=== PATIENT | male | born 1975 | race Caucasian/White ===

== ENCOUNTER → 2022-01-05 06:10 | Outpatient (CLI) | payer OTHER, SELFPAY ==
[2022-01-04 21:36] LABS: Alanine Aminotransferase 34 U/L (12-78); Albumin Level 4.1 g/dl (3.5-5.0); Albumin/Globulin Ratio 1.4 (1.1-1.8); Alkaline Phosphatase 79 U/L (38-126); Anion Gap 11.1 mEq/L (5-15); Aspartate Amino Transferase 29 U/L (17-59); Bilirubin,Total 0.3 mg/dl (0.2-1.3); Blood Urea Nitrogen 22 mg/dl (9-20); Calcium 8.9 mg/dl (8.4-10.2); Carbon Dioxide 27 mmol/L (22.0-30.0); Chloride 102 mmol/L (98-107); Estimated Glomerular Filt Rate 65 ml/min (>60); GFR (African American) 78 ML/MIN (>60); Glucose 99 mg/dl (74-100); Potassium 4.1 mmoL/L (3.5-5.1); Sodium 136 mmol/L (136-145); Total Protein,Serum 7.1 g/dl (6.3-8.2)
[2022-01-04 22:05] LABS: Prostate Specific Ag Screen 0.4 ng/ml (0.0-4.0)
== END ==
PROVIDERS: PCP Family Medicine; Visit Provider Family Medicine
DX: I10 Essential (primary) hypertension (principal); N40.0 Benign prostatic hyperplasia without lower urinary tract symptoms; Z12.5 Encounter for screening for malignant neoplasm of prostate
CPT/HCPCS: 80053; G0103

== ENCOUNTER → 2022-06-28 10:10 | Outpatient (CLI) | payer OTHER, SELFPAY ==
[2022-06-28 18:23] LABS: Basophils # 0.1 K/mm3 (0-0.2); Basophils % 1.2 % (0.1-2.0); Eosinophils # 0.2 K/mm3 (0.0-0.4); Eosinophils % 1.9 % (0.1-12.0); Hematocrit 45.2 % (42.0-52.0); Hemoglobin 14.9 g/dL (14.1-18.0); Lymphocytes # 2.2 K/mm3 (0.7-4.5); Lymphocytes % 24.5 % (10-50); Mean Corpuscular Volume 93.8 fl (80-94); Mean Platelet Volume 8.5 fl (7.4-10.4); Monocytes # 0.7 K/mm3 (0.1-1.0); Monocytes % 7.2 % (1.7-9.3); Neutrophils # 5.9 K/mm3 (1.8-7.8); Neutrophils % 65.1 % (37.0-80.0); Platelet Count 466 K/mm3 (142-424); Red Blood Count 4.82 M/mm3 (4.60-6.20); White Blood Count 9.1 K/mm3 (4.8-10.8)
[2022-06-28 18:30] LABS: Alanine Aminotransferase 41 U/L (12-78); Albumin/Globulin Ratio 1.2 (1.1-1.8); Alkaline Phosphatase 80 U/L (38-126); Anion Gap 13.3 mEq/L (5-15); Aspartate Amino Transferase 30 U/L (17-59); Bilirubin,Total 0.5 mg/dl (0.2-1.3); Blood Urea Nitrogen 17 mg/dl (9-20); Calcium 8.5 mg/dl (8.4-10.2); Carbon Dioxide 26 mmol/L (22.0-30.0); Chloride 103 mmol/L (98-107); Chol/HDL Ratio 3.9 (1-3.5); Cholesterol 118 mg/dl (140-200); Estimated Glomerular Filt Rate 71 ml/min (>60); GFR (African American) 86 ML/MIN (>60); Globulin 3.3 g/dL (1.3-3.2); Glucose 85 mg/dl (74-100); HDL Cholesterol 30 mg/dl (40-60); Potassium 4.3 mmoL/L (3.5-5.1); Sodium 138 mmol/L (136-145); Total Protein,Serum 7.3 g/dl (6.3-8.2); Triglycerides 117 mg/dl (30-150); VLDL Cholesterol 23 mg/dL (0-40)
[2022-06-28 18:49] LABS: 25-OH Vitamin D, Total < 12.8 ng/mL (30-100)
[2022-06-28 19:00] LABS: Thyroid Stimulating Hormone 0.79 uIU/mL (0.465-4.68)
== END ==
PROVIDERS: PCP Family Medicine; Visit Provider Family Medicine
DX: E78.5 Hyperlipidemia, unspecified (principal); I10 Essential (primary) hypertension; E55.9 Vitamin D deficiency, unspecified
CPT/HCPCS: 80053; 80061; 82306; 84443; 85025

== ENCOUNTER → 2023-01-24 12:43 | Outpatient (CLI) | payer OTHER, SELFPAY ==
[2023-01-24 19:21] LABS: Alanine Aminotransferase 33 U/L (12-78); Albumin Level 4.3 g/dl (3.5-5.0); Albumin/Globulin Ratio 1.2 (1.1-1.8); Alkaline Phosphatase 86 U/L (38-126); Anion Gap 14.4 mEq/L (5-15); Aspartate Amino Transferase 28 U/L (17-59); Bilirubin,Total 0.6 mg/dl (0.2-1.3); Blood Urea Nitrogen 17 mg/dl (9-20); Calcium 9.2 mg/dl (8.4-10.2); Carbon Dioxide 30 mmol/L (22.0-30.0); Chloride 100 mmol/L (98-107); Chol/HDL Ratio 4.2 (1-3.5); Cholesterol 121 mg/dl (140-200); Estimated Glomerular Filt Rate 71 ml/min (>60); GFR (African American) 86 ML/MIN (>60); Globulin 3.7 g/dL (1.3-3.2); Glucose 91 mg/dl (74-100); HDL Cholesterol 29 mg/dl (40-60); Potassium 4.4 mmoL/L (3.5-5.1); Sodium 140 mmol/L (136-145); Triglycerides 144 mg/dl (30-150); VLDL Cholesterol 29 mg/dL (0-40)
[2023-01-24 19:32] LABS: Direct LDL Cholesterol 66.62 mg/dL (100-129)
== END ==
PROVIDERS: PCP Family Medicine; Visit Provider Family Medicine
DX: I10 Essential (primary) hypertension (principal); E78.5 Hyperlipidemia, unspecified
CPT/HCPCS: 80053; 80061

== ENCOUNTER 2023-06-13 10:34 | Outpatient (CLI) | payer OTHER, SELFPAY ==
[2023-06-13 19:32] LABS: Coronavirus 19, PCR Not Detected (NotDetected); Influenza A, PCR Not Detected (NotDetected); Influenza B, PCR Not Detected (NotDetected)
[2023-06-13 19:42] LABS: Basophils % 0.3 % (0.1-2.0); Eosinophils % 0.1 % (0.1-12.0); Hematocrit 44.3 % (42.0-52.0); Hemoglobin 14.6 g/dL (14.1-18.0); Lymphocytes # 1.4 K/mm3 (0.7-4.5); Lymphocytes % 9.9 % (10-50); Mean Corpuscular HGB Conc 32.9 g/dL (31.8-35.4); Mean Corpuscular Hemoglobin 30.4 pg (27.0-31.2); Mean Corpuscular Volume 92.4 fl (80-94); Mean Platelet Volume 9.3 fl (7.4-10.4); Monocytes # 1.3 K/mm3 (0.1-1.0); Monocytes % 9.3 % (1.7-9.3); Neutrophils # 11.2 K/mm3 (1.8-7.8); Neutrophils % 80.4 % (37.0-80.0); Platelet Count 337 K/mm3 (142-424); Red Cell Distribution Width 13.1 % (11.5-17.5)
== END 2023-06-13 23:59 ==
PROVIDERS: PCP Family Medicine; Visit Provider Family Medicine
DX: J40 Bronchitis, not specified as acute or chronic (principal); H61.20 Impacted cerumen, unspecified ear; I10 Essential (primary) hypertension
CPT/HCPCS: 85025; 87636

== ENCOUNTER 2023-07-04 11:25 | Outpatient (CLI) | payer OTHER, SELFPAY ==
--- NOTE | 2023-07-04 11:28 | XR_ITS ---
FINAL REPORT CLINICAL HISTORY: right sided chest wall pain, pain with cough had bronchitis for 3 weeks back pain FINDINGS: TWO-VIEW CHEST The heart size is normal. The mediastinum is normal. The lungs are underinflated. There is scar or atelectasis in the right middle lobe and left base. There is no pneumothorax. IMPRESSION: Scar or atelectasis as above. Reviewed, Interpreted and Dictated by Florentino Chaudhari MD Transcribed by Nancy Valdez Authenticated and [facility]
== END 2023-07-04 23:59 ==
LOC: RAD 11:26
PROVIDERS: PCP Family Medicine; Visit Provider Nurse Practitioner
DX: R07.89 Other chest pain (principal); R05.9 Cough, unspecified
CPT/HCPCS: 71046

== ENCOUNTER 2023-07-10 08:38 | Outpatient (CLI) | payer OTHER, SELFPAY ==
--- NOTE | 2023-07-10 08:39 | US_ITS ---
FINAL REPORT CLINICAL HISTORY: RUQ pain, GERD COMPARISON: None FINDINGS: Sonographic images of the right upper quadrant were obtained. The pancreas is partially obscured. There is fatty infiltration of the liver. The gallbladder appears normal without evidence of gallstones.There is no evidence of biliary ductal dilatation.The common duct measures 4mm. There is mild right renal atrophy. There is a 17 mm right renal cyst. IMPRESSION: Fatty liver. Mild right renal atrophy and a 17 mm right renal cyst. Reviewed, Interpreted and Dictated by Usha Lassiter MD Transcribed by Lizzy De La Paz Authenticated and [facility]
== END 2023-07-10 23:59 ==
LOC: RAD 08:39
PROVIDERS: PCP Family Medicine; Visit Provider Nurse Practitioner
DX: R10.11 Right upper quadrant pain (principal); K21.9 Gastro-esophageal reflux disease without esophagitis
CPT/HCPCS: 76705

== ENCOUNTER 2024-02-20 11:02 | Outpatient (CLI) | payer OTHER, SELFPAY ==
[2024-02-20 19:09] LABS: Alanine Aminotransferase 32 U/L (12-78); Albumin Level 3.9 g/dl (3.5-5.0); Albumin/Globulin Ratio 1.2 (1.1-1.8); Alkaline Phosphatase 69 U/L (38-126); Anion Gap 11.8 mEq/L (5-15); Aspartate Amino Transferase 30 U/L (17-59); Bilirubin,Total 0.6 mg/dl (0.2-1.3); Blood Urea Nitrogen 15 mg/dl (9-20); Calcium 9.1 mg/dl (8.4-10.2); Carbon Dioxide 29 mmol/L (22.0-30.0); Chloride 103 mmol/L (98-107); Cholesterol 128 mg/dl (140-200); Estimated Glomerular Filt Rate 54 ml/min (>60); GFR (African American) 65 ML/MIN (>60); Globulin 3.3 g/dL (1.3-3.2); Glucose 88 mg/dl (74-100); HDL Cholesterol 32 mg/dl (40-60); Potassium 4.8 mmoL/L (3.5-5.1); Sodium 139 mmol/L (136-145); Total Protein,Serum 7.2 g/dl (6.3-8.2); Triglycerides 136 mg/dl (30-150); VLDL Cholesterol 27 mg/dL (0-40)
[2024-02-20 19:35] LABS: Prostate Specific Ag Screen 0.3 ng/ml (0.0-4.0)
== END 2024-02-20 23:59 | disposition home or self-care (01) ==
LOC: LAB.DROPOF 02-21 11:14
PROVIDERS: PCP Family Medicine; Visit Provider Family Medicine
DX: E78.5 Hyperlipidemia, unspecified (principal); N40.0 Benign prostatic hyperplasia without lower urinary tract symptoms; I10 Essential (primary) hypertension
CPT/HCPCS: 80053; 80061; G0103

== ENCOUNTER 2024-06-25 11:09 | Outpatient (CLI) | payer OTHER, SELFPAY ==
[2024-06-25 19:07] LABS: Alanine Aminotransferase 29 U/L (12-78); Albumin Level 4.6 g/dl (3.5-5.0); Albumin/Globulin Ratio 1.5 (1.1-1.8); Alkaline Phosphatase 82 U/L (38-126); Anion Gap 16.8 mEq/L (5-15); Aspartate Amino Transferase 30 U/L (17-59); Bilirubin,Total 0.6 mg/dl (0.2-1.3); Blood Urea Nitrogen 28 mg/dl (9-20); Calcium 9.5 mg/dl (8.4-10.2); Carbon Dioxide 24 mmol/L (22.0-30.0); Chloride 102 mmol/L (98-107); Estimated Glomerular Filt Rate 43 ml/min (>60); GFR (African American) 52 ML/MIN (>60); Globulin 3.1 g/dL (1.3-3.2); Glucose 91 mg/dl (74-100); Potassium 4.8 mmoL/L (3.5-5.1); Sodium 138 mmol/L (136-145); Total Protein,Serum 7.7 g/dl (6.3-8.2)
[2024-06-25 19:40] LABS: 25-OH Vitamin D, Total 20.6 ng/mL (30-100)
== END 2024-06-25 23:59 | disposition home or self-care (01) ==
LOC: LAB.DROPOF 06-26 13:39
PROVIDERS: PCP Family Medicine; Visit Provider Family Medicine
DX: E55.9 Vitamin D deficiency, unspecified (principal); I10 Essential (primary) hypertension
CPT/HCPCS: 80053; 82306

== ENCOUNTER 2024-08-20 12:46 | Outpatient (CLI) | payer OTHER, SELFPAY ==
[2024-08-20 21:23] LABS: Albumin Level 4.5 g/dl (3.5-5.0); Chloride 101 mmol/L (98-107)
[2024-08-20 21:24] LABS: Potassium 4.6 mmoL/L (3.5-5.1); Sodium 136 mmol/L (136-145)
[2024-08-20 21:26] LABS: Blood Urea Nitrogen 22 mg/dl (9-20); Estimated Glomerular Filt Rate 40 ml/min (>60); GFR (African American) 49 ML/MIN (>60)
[2024-08-20 21:27] LABS: Alanine Aminotransferase 28 U/L (12-78); Albumin/Globulin Ratio 1.6 (1.1-1.8); Alkaline Phosphatase 72 U/L (38-126); Anion Gap 11.6 mEq/L (5-15); Aspartate Amino Transferase 26 U/L (17-59); Bilirubin,Total 0.4 mg/dl (0.2-1.3); Calcium 9.4 mg/dl (8.4-10.2); Carbon Dioxide 28 mmol/L (22.0-30.0); Globulin 2.8 g/dL (1.3-3.2); Glucose 93 mg/dl (74-100); Total Protein,Serum 7.3 g/dl (6.3-8.2)
== END 2024-08-20 23:59 | disposition home or self-care (01) ==
LOC: LAB.DROPOF 08-22 09:59
PROVIDERS: PCP Family Medicine; Visit Provider Family Medicine
DX: N28.9 Disorder of kidney and ureter, unspecified (principal)
CPT/HCPCS: 80053

== ENCOUNTER 2024-11-26 10:30 | Outpatient (CLI) | payer OTHER, SELFPAY ==
[2024-11-26 19:57] LABS: Alanine Aminotransferase 20 U/L (12-78); Albumin/Globulin Ratio 1.3 (1.1-1.8); Alkaline Phosphatase 64 U/L (38-126); Aspartate Amino Transferase 25 U/L (17-59); Bilirubin,Total 0.6 mg/dl (0.2-1.3); Blood Urea Nitrogen 17 mg/dl (9-20); Calcium 9.6 mg/dl (8.4-10.2); Carbon Dioxide 27 mmol/L (22.0-30.0); Chloride 106 mmol/L (98-107); Estimated Glomerular Filt Rate 64 ml/min (>60); GFR (African American) 77 ML/MIN (>60); Glucose 103 mg/dl (74-100); Sodium 138 mmol/L (136-145)
--- OUTSIDE RECORDS SUMMARY | 2024-11-27 09:34 | XMS_ITS | Clinical Summary ---
Author Organization [facility] [place] [address] Care Team Providers Care Project Construction Assistant Manager Name Role Phone Unavailable Primary Care Provider Unavailabl e Social History Tobacco Use Types Packs/Day Years Used Date Smoking Tobacco: Never Assessed Sex and Gender Information Value Date Recorded Sex Assigned at Not on file Legal Sex Male 7:10 PM EDT Gender Identity Not on file Sexual Orientation Not on file Plan of Treatment Health Maintenance Due Date Last Done Comments Annual Wellness Exam 1976 DTaP/TDaP/Td (1 - Tdap) 1992 Hepatitis B Vaccine (1 of 3 - 19+ 3-dose series) 1992 Cologuard 2018 Colon Cancer Screening 2018 Colonoscopy 2018 FIT 2018 Sigmoidoscopy 2018 Virtual Colonography 2018 Pneumococcal Vaccine 50+ (1 of 1 - PCV) 10/14/2023 Zoster (1 of 2) 10/14/2023 COVID-19 Vaccine ( - 2023-2 5 season) 2024 Influenza Vaccine (Season Ended) 2025 Meningococcal B Vaccine Aged Out No l onger eligible based on patient's age to complete this topic
== END 2024-11-26 23:59 | disposition home or self-care (01) ==
LOC: LAB.DROPOF 11-27 09:30
PROVIDERS: PCP Family Medicine; Visit Provider Family Medicine
DX: N28.9 Disorder of kidney and ureter, unspecified (principal)
CPT/HCPCS: 80053

== ENCOUNTER 2025-05-27 12:18 | Outpatient (CLI) | payer OTHER, SELFPAY ==
[2025-05-27 15:32] LABS: Alanine Aminotransferase 24 U/L (12-78); Albumin Level 4.4 g/dl (3.5-5.0); Albumin/Globulin Ratio 1.4 (1.1-1.8); Alkaline Phosphatase 64 U/L (38-126); Anion Gap 12.3 mEq/L (5-15); Aspartate Amino Transferase 28 U/L (17-59); Bilirubin,Total 0.6 mg/dl (0.2-1.3); Blood Urea Nitrogen 18 mg/dl (9-20); Carbon Dioxide 29 mmol/L (22.0-30.0); Chloride 103 mmol/L (98-107); Creatinine,Serum 1.40 mg/dl (0.66-1.25); Estimated Glomerular Filt Rate 53 ml/min (>60); GFR (African American) 65 ML/MIN (>60); Globulin 3.1 g/dL (1.3-3.2); Potassium 4.3 mmoL/L (3.5-5.1); Sodium 140 mmol/L (136-145); Total Protein,Serum 7.5 g/dl (6.3-8.2)
[2025-05-27 16:22] LABS: Calcium 9.4 mg/dl (8.4-10.2); Glucose 86 mg/dl (74-100)
--- OUTSIDE RECORDS SUMMARY | 2025-05-28 19:40 | XMS_ITS | Clinical Summary ---
Author Organization [facility] [place] [address] Care Team Providers Care Karate Teacher Name Role Phone Unavailable Primary Care Provider [...] of 2) 10/14/2023 COVID-19 Vaccine ( - 2024-2 6 season) 2025 Influenza Vaccine (#1) 2025 Meningococcal B Vaccine Aged Out No l onger eligible based on patient's age to complete this topic
== END 2025-05-27 23:59 | disposition home or self-care (01) ==
LOC: LAB.DROPOF 05-28 19:38
PROVIDERS: PCP Family Medicine; Visit Provider Family Medicine
DX: N40.0 Benign prostatic hyperplasia without lower urinary tract symptoms (principal); I10 Essential (primary) hypertension; Z20.828 Contact with and (suspected) exposure to other viral communicable diseases
CPT/HCPCS: 80053; G0103